=== PATIENT | male | born 1965 | race Hispanic/Latino ===

== ENCOUNTER 2017-12-26 08:46 | Outpatient (CLI) | payer OTHER ==
[2017-12-26 10:17] LABS: Blood Urea Nitrogen 22 mg/dL (9-20)
--- NOTE | 2017-12-26 11:11 | Cat Scan Report ---
CT ABDOMEN AND PELVIS WITH CONTRAST INDICATION: Right adrenal mass. COMPARISON: None similar at this institution. FINDINGS: Abdomen and pelvis CT performed following intravenous administration of 100 cc of Omnipaque 300. LUNG BASES: Borderline cardiomegaly without silhouette mildly exaggerated due to prominent pericardial fat pad. Mild nonspecific distal esophageal wall prominence/thickening, not excluded for gastroesophageal reflux and/or hiatal hernia, amongst others. Right hemidiaphragm slightly elevated. ABDOMEN: A 6.7 cm hypodense lesion measuring 20 HU as on axial image 77, series 2, likely right suprarenal/adrenal and appears to indent the right hepatic lobe posteromedially. Minimal blood vessels and possible calcification at its periphery also possible. Unremarkable left adrenal, gallbladder, spleen, pancreas, aorta, IVC and non-hydronephrotic kidneys. A 0.7 cm left renal cortical hypodensity. Diffuse fatty hepatic infiltration. Right hepatic lobe approximately 18 cm in mid clavicular length. No biliary dilatation. Patent veins. No ascites or size significant adenopathy. Nonopacified GI tract evaluation limited, though grossly nonobstructive. Normal retrocecal appendix situated near the inferior right hepatic lobe tip. Fat containing umbilical hernia with a transverse neck of 1.9 cm. PELVIS: Mild seminal vesicle calcifications. Small prostatic calcifications noted. Unremarkable urinary bladder. Usual rectosigmoid stool. Small, approximately 1 cm bilateral fat containing inguinal hernias. Bilateral L5 pars defects with approximately 8 mm anterolisthesis of L5 over S1. Severe disc narrowing with adjacent sclerosis and mild degenerative spurring at this level also seen. Additional mild multilevel imaged spinal degenerative spurring. Possible 2.8 cm hemangioma in the left femoral head/neck medially. CONCLUSION: 1. Approximately 6.7 cm possible right adrenal cyst, as described. Please also correlate clinically. Direct comparison with more remote imaging would also be helpful to reassure stability, if available. 2. Various other incidental findings as fatty liver, fat-containing umbilical hernia and L5-S1 spondylolisthesis with bilateral pars defects, amongst others, as detailed above. Thank you for the opportunity to participate in this patient's care.
== END 2017-12-26 08:47 | disposition home or self-care (01) ==
LOC: CT 08:46
PROVIDERS: ATTEND Hospitalist
DX: D35.01 Benign neoplasm of right adrenal gland (principal); K76.0 Fatty (change of) liver, not elsewhere classified; K42.9 Umbilical hernia without obstruction or gangrene; K40.90 Unilateral inguinal hernia, without obstruction or gangrene, not specified as recurrent; J98.6 Disorders of diaphragm; N42.89 Other specified disorders of prostate; M47.899 Other spondylosis, site unspecified; M43.17 Spondylolisthesis, lumbosacral region
CPT/HCPCS: 36415; 74177; 82565; 84520; Q9967